=== PATIENT | male | born 1990 | race Caucasian/White ===

== ENCOUNTER 2023-11-19 19:51 | Emergency (ER) | payer OTHER, SELFPAY ==
[2023-11-19 20:04] VITALS: BP 140/77; PULSE 69; RESP 18; TEMP 36.1; O2SAT 98; BMI 27.9
--- NOTE | 2023-11-19 22:24 | PC.NURSE ---
Pt is visiting from [place]. Has been dealing with perianal abscess with fistula since January 2023. Seen multiple times since then given a new dose of Keflex that pt is currently on 4 times daily. While riding bikes yesterday pt noted pain, and serosanguious fluid (no pus). Concerned that something bad is going on in his rectum after bike ride. He did call his Colorectal provider in [place] and can be consulted via phone.
--- NOTE | 2023-11-19 22:57 | ED.SKABFB ---
HPI - Skin/Abscess/Foreign Bdy General Chief complaint: Skin/Abscess/Foreign Body Stated complaint: poss abcess Time Seen by Provider: 11/19/23 21:58 Source: patient Mode of arrival: Ambulatory History of Present Illness HPI narrative: 33-year-old male presents for possible perineal abscess. Patient has known rectal fistula that has currently under treatment by Colorectal surgery in [place]. Patient is in [place] for vacation and after the plane ride and riding his motorcycle he thinks that the skin became irritated. He felt an increased area of swelling that seemed abnormal. He looked into the mirror and tried to express material from it that seemed bloody. He reports concerned because an area looked black and he was afraid of gangrene or necrosis. Patient is currently on Keflex prescribed by his colorectal surgeon Related Data Previous Rx's Medication Instructions Recorded cephalexin 500 mg capsule 500 mg PO QID #20 caps 11/19/23 Allergies Allergy/AdvReac Type Severity Reaction Status Date / Time ketamine [KETAMINE] Allergy Unknown Unverified 07/26/17 12:34 Exam Initial Vital Signs Initial Vital Signs: Vital Signs Temperature 97 F L 11/19/23 20:04 Pulse Rate 69 11/19/23 20:04 Respiratory Rate 18 11/19/23 20:04 Blood Pressure 140/77 11/19/23 20:04 Pulse Oximetry 98 11/19/23 20:04 Oxygen Delivery Method Room Air 11/19/23 20:04 Const: Awake, alert, no acute distress, nontoxic appearing : Rectal tone intact, fistula opening noted at 6o'clock position Skin: Warm, Dry, fistula seen. At 6o'clock position a 1x1.5cm fluctuant area seen. When palpated a small amount of purulent material is expressed from known fistula site Neuro: AO x3, CN II-XII grossly intact, moves all extremities Course Vital Signs Vital signs: Vital Signs - 8 hr 11/19/23 20:04 11/19/23 23:10 Temperature 97 F L Pulse Rate 69 76 Respiratory Rate 18 16 Blood Pressure 140/77 136/76 Pulse Oximetry 98 100 Oxygen Delivery Method Room Air MDM - Skin/Abscess/Foreign Bdy Differential Diagnosis Differential diagnosis: Likely abscess of skin or subcutaneous tissue, viral exanthem and dermatophytosis MDM Narrative Medical decision making narrative: Possible abscess, known history of fistula. Patient states that he occasionally gets material from this fistula and it was currently under treatment by Colorectal surgery in [place]. The 1 x 1.5 cm area of concern is fluctuant in appearance, when palpated material that is purulent in appearance is expressed from the known fistula site. The fluctuant area was completely depressed, subsequently a small IV catheter was introduced to the fistula site and irrigated with normal saline. No further purulent material expressed. Fresh bandages applied. Patient informed of findings and appearance of the lesion. I do not suspect gangrene at this time, it appears more to be darkened blood material causing the blackened site. Patient has 3-4 days of antibiotics remaining, due to this new skin finding his course of antibiotics will be extended for several more days. Patient has an upcoming appointment with his colorectal surgeon next week and can follow up at that time. Discharge Plan Departure Patient Disposition: Home Clinical Impression: Fistula Instructions: DI for Skin Abscess Activity Restrictions/Additional Instructions: Your antibiotics have been sent to the [facility] in [place]. Finish all of them as prescribed. Prescriptions: New cephalexin 500 mg capsule 500 mg PO QID Qty: 20 0RF Stand Alone Forms: Patient Portal/API
[2023-11-19 23:10] VITALS: BP 136/76; PULSE 76; RESP 16; O2SAT 100
== END 2023-11-19 23:12 | disposition home or self-care (01) ==
PROVIDERS: Emergency Provider Emergency Medicine
DX: K60.4 Rectal fistula (principal)
CPT/HCPCS: 99281